=== PATIENT | male | born 2000 | race Two or more races ===

== ENCOUNTER 2020-11-21 19:37 | Emergency (ER) | payer OTHER ==
[~2020-11-21] VITALS: Ht 185.4 cm; Wt 83.9 kg
--- NOTE | 2020-11-21 19:46 | NUR ---
PT IS IN ROOM #2B. DR TONG EVALUATED THE PT.
[2020-11-21] MEDS ORDERED: KETOROLAC TROMETHAMINE 60 MG INJ IM ONE ×2 (20:45→20:48)
--- NOTE | 2020-11-21 22:23 | NUR ---
PT WAS D/C'd TO HOME AFTER DR TONG EVALUATION. D/C INSTRUCTIONS GIVEN TO THE PT BY DR TONG. PT DENIES PAIN. GAIT IS STABLE.
[2020-11-21 22:26] VITALS: BP 136/72
== END 2020-11-21 22:26 | disposition home or self-care (01) ==
LOC: ER 19:40
DX: S83.91XA Sprain of unspecified site of right knee, initial encounter (principal); S13.9XXA Sprain of joints and ligaments of unspecified parts of neck, initial encounter; V43.52XA Car driver injured in collision with other type car in traffic accident, initial encounter; Y92.414 Local residential or business street as the place of occurrence of the external cause
CPT/HCPCS: 71045; 72050; 73562; 96372; 99284; J1885; A4663